=== PATIENT | female | born 1965 | race American Indian/Alaskan Native ===

== ENCOUNTER 2021-07-21 19:29 | Emergency (ER) | payer OTHER ==
[2021-07-21 22:25] VITALS: BP 118/77
[2021-07-21] MEDS ORDERED: ACETAMINOPHEN 500 MG TAB PO ONE (23:01)
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
== END 2021-07-22 01:40 | disposition home or self-care (01) ==
LOC: ED 19:29
DX: M54.2 Cervicalgia (principal); V89.2XXA Person injured in unspecified motor-vehicle accident, traffic, initial encounter; Y93.89 Activity, other specified; Y92.89 Other specified places as the place of occurrence of the external cause; Y99.8 Other external cause status
CPT/HCPCS: 72040; 99283